=== PATIENT | female | born 1975 | race Caucasian/White ===

== ENCOUNTER 2018-02-18 07:13 | Day surgery (SDC) | payer OTHER ==
[2018-02-18] MEDS ORDERED: MIDAZOLAM 1 MG/ML 2 ML INJ ×2 (08:42)
[2018-02-18] MEDS ORDERED: FENTAnyl 50 MCG/ML VIAL (08:42)
== END 2018-02-18 11:27 | disposition home or self-care (01) ==
LOC: GIL 07:13
DX: K29.50 Unspecified chronic gastritis without bleeding (principal); E03.9 Hypothyroidism, unspecified
CPT/HCPCS: 43239; 88305; 88312